=== PATIENT | female | born 1980 | race African-American/Black ===

== ENCOUNTER 2017-04-03 22:07 | Emergency (ER) | payer MEDICAID ==
[~2017-04-03] VITALS: Ht 157.5 cm; Wt 57.0 kg
[2017-04-04] MEDS ORDERED: KETOROLAC 30MG/ML VIAL IM ONE (04:45)
[2017-04-04 05:26] VITALS: BP 121/76
== END 2017-04-04 07:01 | disposition home or self-care (01) ==
LOC: ER 22:17
DX: S14.109A Unspecified injury at unspecified level of cervical spinal cord, initial encounter (principal); R07.89 Other chest pain; V49.59XA Passenger injured in collision with other motor vehicles in traffic accident, initial encounter; Y93.89 Activity, other specified; Y92.410 Unspecified street and highway as the place of occurrence of the external cause; Y99.9 Unspecified external cause status; F17.210 Nicotine dependence, cigarettes, uncomplicated
CPT/HCPCS: 71020; 72040; 81025; 93005; 96372; 99284; J1885